=== PATIENT | male | born 1990 | race Caucasian/White ===

== ENCOUNTER 2017-08-07 19:35 | Emergency (ER) | payer MEDICAID ==
[~2017-08-07] VITALS: Ht 172.7 cm; Wt 77.1 kg
[2017-08-07] MEDS ORDERED: FAMCICLOVIR500 MG PO (20:08)
[2017-08-07] MEDS ORDERED: PREDNISONE10 MG PO (20:08)
== END 2017-08-07 20:25 | disposition home or self-care (01) ==
LOC: ED 19:35
DX: B02.9 Zoster without complications (principal); F17.200 Nicotine dependence, unspecified, uncomplicated
CPT/HCPCS: 99283

== ENCOUNTER 2023-11-04 15:14 | Emergency (ER) | payer OTHER ==
[~2023-11-04] VITALS: Ht 172.7 cm; Wt 72.0 kg
[~2023-11-04 15:14] MED LIST: FAMCICLOVIR500 MG PO; PREDNISONE10 MG PO
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
[2023-11-04] MEDS ORDERED: AMOX TR-K CLV1 EAC1 PO (16:33)
[2023-11-04] MEDS ORDERED: CLEOCIN HCL300 MG PO (16:34)
[2023-11-04] MEDS ORDERED: TRAMADOL HCL50 MG PO (16:34)
[2023-11-04 16:46] VITALS: BP 154/100
== END 2023-11-04 16:46 | disposition home or self-care (01) ==
LOC: ED 15:14
DX: K02.9 Dental caries, unspecified (principal); K04.7 Periapical abscess without sinus; F17.200 Nicotine dependence, unspecified, uncomplicated; Z79.899 Other long term (current) drug therapy
CPT/HCPCS: 99283